=== PATIENT | female | born 1995 | race Caucasian/White ===

== ENCOUNTER 2017-07-06 16:57 | Outpatient (CLI) | payer SELFPAY | END 2017-07-06 17:00 | LOC: LABRHC 16:57 | PROVIDERS: ATTEND Physician Assistant | DX: Z00.00 Encounter for general adult medical examination without abnormal findings (principal) | CPT/HCPCS: 88148; G0143 ==

== ENCOUNTER 2017-10-14 22:35 | Emergency (ER) | payer SELFPAY ==
[2017-10-14] MEDS ORDERED: KETOROLAC TROMETHAMINE 30 MG/1ML VIAL IVP ONE (23:02)
[2017-10-14] MEDS ORDERED: 0.9 % SODIUM CHLORIDE 1,000 ML IV ONE (23:03)
[2017-10-14 23:54] LABS: BASOPHILS % 0.6 (0.0-1.5); EOSINOPHILS % 1.2 % (0.0-6.8); MEAN CORPUSCULAR HEMOGLOBIN 30.6 pg (28.0-34.0); MEAN CORPUSCULAR VOLUME 85.8 fl (80.0-100.0); MONOCYTES % 5.6 % (0.0-11.0); NEUTROPHILS # 3.4 # k/uL (1.4-7.7)
--- NOTE | 2017-10-15 00:02 | Diagnostic Imaging Report ---
MONO BAILEY (MVA REACTOR OPERATOR) - ER [facility] [address] [facility].[address] [address] Report Submission Date: October 14, 2017 11:42:50 PM CDT Patient Study Name: NATHALY PERES Date: October 14, 2017 11:22:06 PM CDT Modality Type: DX Gender: F Description: CHEST : 89 Institution: [facility] Physician: MONO BAILEY (MVA REACTOR OPERATOR) - ER Pa and lateral chest Clinical history :short of breath Technique pa and lateral upright Findings: The lung arreola are hyperinflated but clear I see no hilar or mediastinal mass. There is no pleural effusion. Thoracic spine dextroscoliosis is present. There is thoracolumbar fusion of the inferior edge of the radiograph Impression: No acute pulmonary disease Hyperinflation Scoliosis and thoracolumbar fusion Electronically signed on October 14, 2017 11:42:50 PM CDT by: Timo RIZZO
[2017-10-15 00:29] LABS: APPEARANCE,URINE CLEAR (CLEAR); COLOR,URINE YELLOW (YELLOW)
[2017-10-15 00:30] LABS: OCCULT BLOOD,URINE NEGATIVE (NEGATIVE)
[2017-10-15 00:39] LABS: eGFR (African) > 60; eGFR (Non-African) > 60
--- NOTE | 2017-10-15 01:06 | ED Physician Documentation ---
General Adult - HISTORIAN Historian: patient, spouse - HPI Stated Complaint: Fever Chief Complaint: General Adult Onset: days ago Timing: still present Further Comments: yes (22 year old female patient presents with complaint of fever and left jaw pain. Patient reports taking Tylenol at 2100, ibuprofen mid- day. Patient reports seeing PCP on 10/11/17. Denies nausea, vomiting, abd pain , or diarrhea.) - ROS CONST: fever, recent illness, chills. denies: sweating, weakness, weight loss EYES/ENT: sore throat, nasal congestion. denies: problems with vision, nasal drainage CVS/RESP: cough. denies: chest pain, shortness of breath GI/: none MS/SKIN/LYMPH: none NEURO/PSYCH: headache. denies: fainting, dizziness, tingling, numbness, difficulty walking, difficulty with speech, anxiety, depression, other - PAST HX Past History: none Other History: other (LMP 2 weeks ago) Surgeries/Procedures: other (Fusion: L-spine) Allergies/Adverse Reactions: Allergies Allergy/AdvReac Type Severity Reaction Status Date / Time penicillin G Allergy Verified 10/15/17 01:06 - SOCIAL HX Smoking History: cigarettes - FAMILY HX Family History: No - VITAL SIGNS Vital Signs: Vital Signs Temp Pulse Resp BP Pulse Ox 101.4 F H 113 H 20 153/78 98 10/14/17 23:50 10/14/17 22:40 10/14/17 22:40 10/14/17 22:40 10/14/17 22:40 - REVIEWED ASSESSMENTS Nursing Assessment Reviewed: Yes Vitals Reviewed: Yes Progress - Progress Progress: Temp down to 99 after fluids and IV Toradol. 0100 Patient sitting up on stretcher, states she feels better; shaking head yes and no with no complaint of pain. Able to flex chin to chest with no complaint of pain. Reviewed lab results; questions answered. Verbalized understanding. ED Results Lab/Radiology - Lab Results Lab Results: Lab Results 10/14/17 10/14/17 10/14/17 23:25 23:25 23:15 WBC RBC Hgb Hct MCV MCH MCHC RDW Plt Count Neut % (Auto) Lymph % (Auto) Liberty % (Auto) Eos % (Auto) Baso % (Auto) Neut # (Auto) Lymph # (Auto) [place] # (Auto) Eos # (Auto) Baso # (Auto) Reactive Lymphs % Reactive Lymphs # Sodium Potassium Chloride Carbon Dioxide BUN Creatinine Estimated Creat Clear Est GFR ( Amer) Est GFR (Non-Af Amer) Glucose Lactate Calcium Total Bilirubin AST ALT Alkaline Phosphatase Total Protein Albumin Serum HCG, Qual Negative (NEGATIVE) Urine Color Yellow (YELLOW) Urine Appearance Clear (CLEAR) Urine pH 7.0 (5.0 - 8.0) Ur Specific [place] 1.025 (1.010-1.030) Urine Protein Negative mg/dL mg/dL (NEGATIVE) Urine Ketones Negative mg/dL mg/dL (NEGATIVE) Urine Occult Blood Negative (NEGATIVE) Urine Nitrite Negative (NEGATIVE) Urine Bilirubin Negative (NEGATIVE) Urine Urobilinogen 1.0 Eu Eu (0.2-1.0) Ur Leukocyte Esterase Negative (NEGATIVE) Urine Glucose Negative mg/dL mg/dL (NEGATIVE) Monoscreen Negative (NEGATIVE) 10/14/17 10/14/17 22:58 22:58 WBC 4.40 K/ul K/ul (4.00-12.00) RBC 4.47 M/ul M/ul (3.90-5.20) Hgb 13.7 g/dL g/dL (12.0-16.0) Hct 38.3 % % (34.5-46.5) MCV 85.8 fl fl (80.0-100.0) MCH 30.6 pg pg (28.0-34.0) MCHC 35.7 g/dL g/dL (30.0-36.0) RDW 12.6 % % (11.3-14.3) Plt Count 167 K/mm3 K/mm3 (130-400) Neut % (Auto) 77.1 % % (39.0-79.0) Lymph % (Auto) 14.7 % L % (16.0-50.0) Liberty % (Auto) 5.6 % % (0.0-11.0) Eos % (Auto) 1.2 % % (0.0-6.8) Baso % (Auto) 0.6 (0.0-1.5) Neut # (Auto) 3.4 # k/uL # k/uL (1.4-7.7) Lymph # (Auto) 0.6 # k/uL # k/uL (0.6-4.0) Liberty # (Auto) 0.2 # k/uL # k/uL (0.0-0.9) Eos # (Auto) 0.0 # k/uL # k/uL (0.0-0.6) Baso # (Auto) 0.0 # k/uL # k/uL (0.0-0.5) Reactive Lymphs % 0.9 % % (0.0-5.0) Reactive Lymphs # 0.0 # k/uL # k/uL (0.0-0.8) Sodium 133 mmol/L L mmol/L (136-145) Potassium 3.7 mmol/L mmol/L (3.5-5.1) Chloride 103 mmol/L mmol/L (98-107) Carbon Dioxide 20 mmol/L L mmol/L (22-30) BUN 16 mg/dL mg/dL (7-17) Creatinine 0.70 mg/dL mg/dL (0.52-1.04) Estimated Creat Clear 151 Est GFR ( Amer) > 60 (60 - ) Est GFR (Non-Af Amer) > 60 (60 - ) Glucose 152 mg/dL H mg/dL (74-106) Lactate 2.3 U/L H U/L (0.7-2.1) Calcium 9.3 mg/dL mg/dL (8.4-10.2) Total Bilirubin 0.4 mg/dL mg/dL (0.2-1.3) AST 21 U/L U/L (15-46) ALT 19 U/L U/L (13-69) Alkaline Phosphatase 54 U/L U/L (38-126) Total Protein 7.3 g/dL g/dL (6.3-8.2) Albumin 4.1 g/dL g/dL (3.5-5.0) Serum HCG, Qual Urine Color Urine Appearance Urine pH Ur Specific [place] Urine Protein Urine Ketones Urine Occult Blood Urine Nitrite Urine Bilirubin Urine Urobilinogen Ur Leukocyte Esterase Urine Glucose Monoscreen - Orders Orders: ED Orders Category Date Time Status Place IV Lock 1T Care 10/14/17 22:58 Active CHEST 2VIEW [RAD] Stat Exams 10/14/17 23:04 Completed BLOOD CULTURE Stat Lab 10/14/17 22:58 Received CBC/PLATELET/DIFF Stat Lab 10/14/17 22:58 Completed CMP Stat Lab 10/14/17 22:58 Completed GRP A STREP SCREEN Stat Lab 10/14/17 22:58 Received LACTATE Stat Lab 10/14/17 22:58 Completed MONOTEST Stat Lab 10/14/17 23:25 Completed SERUM HCG Stat Lab 10/14/17 23:25 Completed TICK PROFILE Stat Lab 10/14/17 22:58 Received UA MACRO DIP ONLY Stat Lab 10/14/17 23:15 Completed 0.9 % Sodium Chloride [Normal Saline] 1,000 ml Med 10/14/17 23:03 Discontinued IV NOW Ketorolac Tromethamine [Toradol] Med 10/14/17 23:02 Discontinued 30 mg IVP NOW ONE General Adult Physical Exam - PHYSICAL EXAM GENERAL APPEARANCE: mild distress EENT: eye inspection normal, ENT inspection normal, pharynx normal, no signs of dehydration, PEG, no nystagmus, TM's nml NECK: normal inspection, thyroid normal, lymphadenopathy (right submandibular lymph node 1 cm mobile nodule. ) RESPIRATORY: no resp distress, chest non-tender, breath sounds normal CVS: heart sounds normal, equal pulses, no murmur, no gallop, PMI nml, no JVD, no friction rub, tachycardia ABDOMEN: soft, no organomegaly, normal bowel sounds, no abdominal bruit, no distension SKIN: normal color, warm/dry, NR, INT, PAL, DR EXTREMITIES: non-tender, normal range of motion, no evidence of injury, no edema , J, MISSION MANAGER NEURO: oriented X3, CN's nml as tested, motor nml, sensation nml, mood/affect nml Discharge Clincal Impression: Viral syndrome Fever Qualifiers: Fever type: unspecified Qualified Code(s): R50.9 - Fever, unspecified Referrals: Inge Loera PA [Primary Care Provider] - 2 Days Additional Instructions: student support services director an over the counter decongestant such as pseudoped, dayquil and Nyquil at your pharmacy. Treat your symptoms with over the counter medication. You may want to try Vicks rub on your chest and/or feet Cough drops as needed for cough and sore throat. Increase your fluid intake juices, hot tea, non-caffeinated beverages Use a humidifier in the room where you sleep. You can also sit in a steam filled bathroom 1-2 times a day. Tylenol 650-1000mg every 4 hours as needed for pain and fever. Alternate with Ibuprofen 800mg every 8 hours for 3 days as needed for fever, pain and body aches. Condition: Stable Disposition: HOME, SELF-CARE Decision to Admit: NO Decision Time: 01:10
[2017-10-15] MEDS ORDERED: ACETAMINOPHEN 500 MG TABLET PO ONE (01:07)
[2017-10-15 01:30] VITALS: BP 119/54
== END 2017-10-15 01:25 | disposition home or self-care (01) ==
LOC: ED 22:35
DX: B34.9 Viral infection, unspecified (principal); R50.9 Fever, unspecified
CPT/HCPCS: 71046; 80053; 81002; 83605; 84703; 85025; 86308; 86618; 86666; 86757; 87040; 87070; 87880; J1885; J7030; 96360; 96374; 99284; S1016

== ENCOUNTER 2018-06-02 10:36 | Outpatient (CLI) | payer BC ==
--- NOTE | 2018-06-02 17:24 | Diagnostic Imaging Report ---
LORENA NAVA [facility] [address] [facility].[address] [address] Report Submission Date: Jun 02, 2018 1:48:46 PM ROLLWAY WORKER Patient Study Name: NATHALY ARTHUR Date: Jun 02, 2018 10:57:00 AM ROLLWAY WORKER Modality Type: DX Gender: F Description: SPINE : 89 Institution: [facility] Physician: LORENA NAVA Thoracic spine: History: Back pain AP, lateral and swimmer's views of the thoracic spine demonstrate mild dextroscoliosis of the mid and lower thoracic spine. Fusion hardware is present from T11-L3. Pedicles are intact. Vertebral body height and intervertebral disc space height is maintained. Impression: Mild dextroscoliosis of the mid and lower thoracic spine. Fusion hardware along the left lateral aspect of the thoracolumbar spine from T11 through L3. No acute osseous abnormality. Electronically signed on Jun 02, 2018 1:48:46 PM ROLLWAY WORKER by: Karen RIZZO
--- NOTE | 2018-06-02 17:24 | Diagnostic Imaging Report ---
LORENA NAVA [facility] [address] [facility] [address] [address] Report Submission Date: Jun 02, 2018 1:46:24 PM PORTER SAMPLE CASE Patient Study Name: NATHALY ARTHUR Date: Jun 02, 2018 10:55:00 AM PORTER SAMPLE CASE Modality Type: DX Gender: F Description: SPINE : 89 Institution: [facility] Physician: LORENA NAVA Lumbar spine History: Back pain AP and lateral projections of the lumbar spine demonstrate [id number] levorotary scoliosis. There is a sideplate along the left lateral aspect of the thoracolumbar spine with multiple screws. The side plate extends from the lower thoracic spine to the L3 vertebral body. There are intervertebral spacing devices at T11/12, T12/L1, L1/2 and L2/3. The vertebral bodies are difficult to accurately assess given the presence of the hardware but vertebral body height is grossly maintained. Impression: [id number] levorotary scoliosis of the lumbar spine with fusion hardware and intervertebral spacing devices as described. Electronically signed on Jun 02, 2018 1:46:24 PM PORTER SAMPLE CASE by: Karen RIZZO
--- NOTE | 2018-06-02 17:25 | Diagnostic Imaging Report ---
LORENA NAVA [facility] [address] [facility].[address] [address] Report Submission Date: Jun 02, 2018 12:05:09 PM SPRING COILER Patient Study Name: NATHALY ARTHUR Date: Jun 02, 2018 11:13:00 AM SPRING COILER Modality Type: DX Gender: F Description: SPINE : 89 Institution: [facility] Physician: LORENA NAVA Examination: Cervical spine History: C-SPINE, NECK PAIN FOR ABOUT A WEEK, WORSENING IN THE LAST 2 DAYS. PT STATES INABILITY TO TURN HEAD WITHOUT TURNING BODY (Hx) / Comparison exams: None available Findings: 3 views of the cervical spine demonstrate normal height. No anterior compression. No abnormal listhesis. Reversal of the normal curvature. No odontoid abnormality. No prevertebral abnormality Impression: No acute osseous abnormality Electronically signed on Jun 02, 2018 12:05:09 PM SPRING COILER by: Jerod RIZZO
== END 2018-06-02 11:00 ==
LOC: RAD 10:36
PROVIDERS: ATTEND Physician Assistant
DX: M54.2 Cervicalgia (principal); M54.6 Pain in thoracic spine; M54.5 Low back pain; Z98.1 Arthrodesis status
CPT/HCPCS: 72040; 72072; 72100